=== PATIENT | female | born 1960 | race Hispanic/Latino ===

== ENCOUNTER 2018-10-21 07:08 | Observation (INO) | payer BC ==
[2018-10-19 12:16] LABS: BASOPHILS % (AUTO) 0.6 % (0.0-5.0); EOSINOPHILS % (AUTO) 1.4 % (0.0-8.0); HEMATOCRIT 40.1 % (36-48); LYMPHOCYTES % (AUTO) 43.3 % (21.0-51.0); MEAN CORPUSCULAR HEMOGLOBIN 28.3 pg (27.0-33.0); MEAN CORPUSCULAR HGB CONC 33.7 g/dL (32.0-36.0); MEAN CORPUSCULAR VOLUME 84.1 fL (79-99); MONOCYTES % (AUTO) 7.6 % (3.0-13.0); NEUTROPHILS % (AUTO) 47.1 % (40.0-77.0); NUCLEATED RED BLOOD CELLS 0.1 % (0.0-0.19); PLATELET COUNT (AUTO) 296 K/uL (130-400); RED BLOOD CELL COUNT(AUTO) 4.76 MIL/uL (4.00-5.50); RED CELL DISTRIBUTION WIDTH 12.6 % (11.0-15.5); WHITE BLOOD COUNT (AUTO) 4.8 K/uL (4.8-10.8)
[2018-10-19 12:28] LABS: CREATININE 0.7 mg/dL (0.5-1.5); POTASSIUM 4.4 mmol/L (3.5-5.1)
[2018-10-19 12:54] VITALS: BP 125/63
[2018-10-19 13:56] VITALS: BP 92/50
[2018-10-21] VITALS (22 sets, daily range): BP systolic 101–152; BP diastolic 59–79
[~2018-10-21] VITALS: Ht 170.2 cm; Wt 90.3 kg
[~2018-10-21 07:08] MED LIST: ATOR20TA65 PO; BIOT5000 PO; CALC-991 PO; GLIP10TA9 PO; GLUC15006 PO; METF-445 PO; METO50TA18 PO; MULT-952 PO; SITA50TA PO
[2018-10-21] MEDS ORDERED: SODIUM CHLORIDE 0.9% 1000ML 1,000 ML IV ONE (08:42)
[2018-10-21] MEDS ORDERED: CALDOLOR 800MG+NS 250ML 250 ML IV ONE (08:52)
[2018-10-21] MEDS: CEFAZOLIN SODIUM 1 GM VIAL ONE ×2 (09:27→10:40)
[2018-10-21] MEDS ORDERED: LIDOCAINE PF 2% 5ML ABBOJECT ONE (10:14)
[2018-10-21] MEDS ORDERED: MIDAZOLAM HCL 1 MG/ML 2ML VIAL ONE (10:15)
[2018-10-21] MEDS ORDERED: PROPOFOL 10 MG/ML 20ML VIAL IV ONE (10:15)
[2018-10-21] MEDS ORDERED: ONDANSETRON HCL 4 MG/2 ML VIAL ONE (10:15)
[2018-10-21] MEDS ORDERED: FENTANYL CITRATE PF 50 MCG/1 ML 5ML AMP IV ONE (10:16)
[2018-10-21] MEDS ORDERED: ROCURONIUM 10MG/1ML SYR 10 MG/ML ML ONE (10:16)
[2018-10-21] MEDS ORDERED: ESTROGENS,CONJUGATED 0.625 MG/GM 42.5 GM VAG CRM VG ONE (11:19)
[2018-10-21] MEDS ORDERED: GLYCOPYRROLATE 1 MG/5 ML SYRINGE ONE (11:46)
[2018-10-21] MEDS ORDERED: NEOSTIGMINE 5MG/5ML SYR IV ONE (11:46)
[2018-10-21] MEDS ORDERED: DEXAMETHASONE SOD PHOSPHATE 10MG/ML 1ML VIAL ONE (11:48)
--- NOTE | 2018-10-21 13:09 | NUR ---
ARRIVED PATIENT ARRIVED TO UNIT VIA BED FROM PACU. PATIENT DROWSY, AROUSED TO VOICE. NO PAIN REPORTED AT THIS TIME. AHUJA CATHETER DRAINING CLEAR YELLOW URINE. VAGINAL PACKING IN PLACE. OB PAD CLEAN. SCDS APPLIED TO BILATERAL LOWER EXTREMITIES. CALL LIGHT LEFT IN REACH.
[2018-10-21] MEDS ORDERED: DOCUSATE SODIUM 100 MG CAP PO PRN (14:45)
[2018-10-21] MEDS ORDERED: PROMETHAZINE HCL 25 MG/ML 1ML AMPULE IM PRN ×2 (14:45)
[2018-10-21] MEDS ORDERED: HYDROCODONE/ACETAMINOPHEN 5/325 MG TAB PO PRN (14:45)
[2018-10-21] MEDS ORDERED: MEPERIDINE-PF 75 MG/ML SYG IM PRN (14:45)
[2018-10-21] MEDS ORDERED: DIPH,PERTUSS(ACELL),TET VAC/PF 0.5 ML VIAL IM SCH (14:45)
[2018-10-21] MEDS ORDERED: BISACODYL 10 MG SUPP.RECT RC PRN (14:45)
[2018-10-21] MEDS ORDERED: SIMETHICONE 80 MG TAB.CHEW PO PRN (14:45)
[2018-10-21] MEDS ORDERED: DEXTROSE 5 %-0.45 % NACL 1,000 ML IV PRN (14:45)
[2018-10-21] MEDS ORDERED: ONDANSETRON HCL 4 MG/2 ML VIAL IVP PRN (14:45)
[2018-10-21] MEDS ORDERED: ACETAMINOPHEN-CODEINE 300/30MG TAB PO PRN ×2 (14:45)
[2018-10-21] MEDS: IBUPROFEN 800 MG TAB PO SCH (14:45)
--- NOTE | 2018-10-21 16:20 | NUR ---
IS INCENTIVE SPIROMETER USE AND PURPOSE EXPLAINED TO PATIENT. SATISFACTORY PATIENT TEACH BACK UTILIZED. MAX. 1500ML VOLUME ON TEACH BACK.
[2018-10-21] MEDS: CALDOLOR 800MG+NS 250ML 250 ML IVPB SCH (16:54)
[2018-10-21] MEDS ORDERED: ESTRADIOL 0.1 MG/24 HR PATCH (WEEKLY) TD SCH (17:32)
[2018-10-21] MEDS ORDERED: CALCIUM CITRATE PO SCH (21:00)
[2018-10-21] MEDS ORDERED: GLIPIZIDE XL 10MG TAB PO SCH (21:00)
[2018-10-21] MEDS ORDERED: LINAGLIPTIN 5 MG TABLET PO SCH (21:00)
[2018-10-21] MEDS ORDERED: [UNRECOGNIZED DRUG - OTHER] PO SCH (21:00)
[2018-10-21] MEDS ORDERED: METOPROLOL TARTRATE 50 MG TAB PO SCH (21:00)
[2018-10-21] MEDS ORDERED: BIOTIN 5000 MCG PO SCH (21:00)
[2018-10-21] MEDS ORDERED: GLUCOSAMINE HCL 1500 MG PO SCH (21:00)
[2018-10-21] MEDS ORDERED: VITAMIN D3 PO SCH (21:00)
[2018-10-21] MEDS ORDERED: MULTIVIT WITH CALCIUM IRON MIN PO SCH (21:00)
[2018-10-21] MEDS ORDERED: ATORVASTATIN CALCIUM 20 MG TABLET PO SCH (21:00)
[2018-10-21] MEDS ORDERED: CALDOLOR 800MG+NS 250ML 250 ML IVPB SCH (22:45)
[2018-10-22] MEDS ORDERED: SODIUM CHLORIDE 0.9% 1000ML 1,000 ML IV SCH
[2018-10-22] MEDS: CALDOLOR 800MG+NS 250ML 250 ML IVPB SCH (01:02)
[2018-10-22 04:10] VITALS: BP 100/62
--- NOTE | 2018-10-22 04:10 | NUR ---
comfort/activity has been resting w/o any complaints, assisted to side of bed to dangle, tolerated well Addendum: 10/22/18 at 0439 by ALIA BRUNO LVN Amended: Links added.
--- NOTE | 2018-10-22 07:04 | NUR ---
glucometer reading 57, cranberry/apple juice given, pt asymptomatic Addendum: 10/22/18 at 0705 by ALIA BRUNO LVN Amended: Links added.
[2018-10-22 07:05] LABS: HEMATOCRIT 35.5 % (36-48); MEAN CORPUSCULAR HGB CONC 33.4 g/dL (32.0-36.0); PLATELET COUNT (AUTO) 316 K/uL (130-400); RED BLOOD CELL COUNT(AUTO) 4.22 MIL/uL (4.00-5.50); RED CELL DISTRIBUTION WIDTH 12.8 % (11.0-15.5); WHITE BLOOD COUNT (AUTO) 10.9 K/uL (4.8-10.8)
[2018-10-22 07:17] VITALS: BP 124/68
--- NOTE | 2018-10-22 07:40 | NUR ---
VAG PACK VAGINAL PACK REMOVED, [facility] CARE PROVIDED; SMALL AMOUNT OF BLEEDING NOTED ON [facility] PAD; PT TOLERATED WELL, NO C/O PAIN
[2018-10-22] MEDS: IBUPROFEN 800 MG TAB PO SCH (08:25)
[2018-10-22] MEDS ORDERED: METFORMIN HCL 850 MG TABLET PO SCH (09:00)
--- NOTE | 2018-10-22 09:20 | NUR ---
AHUJA AHUJA REMOVED, CATHETER TIP INTACT, 600mL OF CLEAR PALE YELLOW URINE REMOVED, [facility] CARE PROVIDED; POC DISCUSSED, PT VERBALIZED UNDERSTANDING
--- NOTE | 2018-10-22 09:46 | NUR ---
ACTIVITY PT AMBULATING HALLWAY, STEADY GAIT, TOLERATING WELL
[2018-10-22 11:18] VITALS: BP 145/82
--- NOTE | 2018-10-22 12:30 | NUR ---
DISCHARGE PT STABLE, NO PAIN, NO COMPLAINTS; PT LEFT UNIT, VIA WHEELCHAIR, ACCOMPANIED BY [facility] CARRYING ALL PERSONAL BELONGINGS, INSTRUCTIONS, AND SITZ BATH; PT LEFT FACILITY IN PERSONAL VEHICLE
== END 2018-10-22 12:30 | disposition home or self-care (01) ==
LOC: DAH 07:08 → DAHIP 07:09 → DAH 07:09 → WSH 13:09
PROVIDERS: ADMIT Obstetrics & Gynecology; ATTEND Obstetrics & Gynecology
DX: N81.10 Cystocele, unspecified (principal); N81.5 Vaginal enterocele; N81.6 Rectocele; E11.9 Type 2 diabetes mellitus without complications; Z79.899 Other long term (current) drug therapy
CPT/HCPCS: 36415 ×2; 57260; 80048; 82948 ×5; 85025; 85027; 86850; 86900; 86901; 96365; 96366; A4344; A4351; A4510; A4600; A4930; G0378 ×22; J0690; J1100; J1741 ×3; J2001; J2250; J2405; J2704; J2710; J3010; J3490; J7030 ×3; 90715

== ENCOUNTER → 2022-05-09 | Outpatient (CLI) | payer BC | END | disposition home or self-care (01) | LOC: RAH 11:41 | PROVIDERS: ATTEND Family Medicine | DX: Z12.31 Encounter for screening mammogram for malignant neoplasm of breast (principal) | CPT/HCPCS: 77067 ==

== ENCOUNTER → 2023-06-28 | Outpatient (CLI) | payer BC | END | disposition home or self-care (01) | LOC: RAH 10:18 | PROVIDERS: ATTEND Family Medicine | DX: Z12.31 Encounter for screening mammogram for malignant neoplasm of breast (principal) | CPT/HCPCS: 77067 ==

== ENCOUNTER → 2024-08-03 | Outpatient (CLI) | payer BC ==
[~2024-08-03] MED LIST changes: +GLIP10TA16 PO; -GLIP10TA9 PO
--- NOTE | 2024-08-03 11:07 | HMCIMG ---
Exam Type: MAMMO SCREENING BILATERAL Clinical Information: ANNUAL SCREENING Comparison: June 28, 2023 Technique: Mammogram with CAD was performed with CC and MLO projections. CAD shows no worrisome regions. FINDINGS: The breasts are heterogeneously dense, which may obscure small masses. No dominant mass or suspicious microcalcification identified. There is no nipple retraction or skin thickening. Benign-appearing calcifications are seen. CAD shows no worrisome regions. IMPRESSION: 1. No mammographic signs of malignancy. 2. Routine follow-up recommended. CATEGORY 2: BENIGN FINDINGS Note: A negative x-ray should not delay biopsy if a dominant or clinically suspicious mass is present, since 8-10% of cancers are not identified by mammography. Dense breasts may obscure an underlying neoplasm.
== END | disposition home or self-care (01) ==
LOC: RAH 09:57
PROVIDERS: ATTEND Family Medicine
DX: Z12.31 Encounter for screening mammogram for malignant neoplasm of breast (principal); R92.333 Mammographic heterogeneous density, bilateral breasts
CPT/HCPCS: 77067